=== PATIENT | male | born 2000 | race Caucasian/White ===

== ENCOUNTER 2019-05-30 23:07 | Emergency (ER) | payer MEDICAID ==
[~2019-05-30] VITALS: Ht 172.7 cm; Wt 63.0 kg
[2019-05-30 23:17] VITALS: BP 130/73
[2019-05-30] MEDS ORDERED: IBUPROFEN 400MG TABLET PO ONE (23:45)
== END 2019-05-31 00:10 | disposition left against medical advice (07) ==
LOC: ER 23:07
DX: M79.632 Pain in left forearm (principal)
CPT/HCPCS: 99282